=== PATIENT | female | born 1975 | race Two or more races ===

== ENCOUNTER → 2020-05-31 | Outpatient (CLI) | payer OTHER | END | disposition home or self-care (01) | LOC: XYW 11:26 | PROVIDERS: ATTEND Family Medicine | DX: S43.432A Superior glenoid labrum lesion of left shoulder, initial encounter (principal); M19.012 Primary osteoarthritis, left shoulder; M75.82 Other shoulder lesions, left shoulder; M25.512 Pain in left shoulder; M77.8 Other enthesopathies, not elsewhere classified; X58.XXXA Exposure to other specified factors, initial encounter; Y93.89 Activity, other specified; Y92.89 Other specified places as the place of occurrence of the external cause; Y99.8 Other external cause status | CPT/HCPCS: 73221 ==

== ENCOUNTER → 2022-11-25 | Outpatient (CLI) | payer OTHER | END | disposition home or self-care (01) | LOC: Rad HDHVI 14:03 | PROVIDERS: ATTEND Internal Medicine Cardiovascular Disease | DX: R06.02 Shortness of breath (principal); R42 Dizziness and giddiness | CPT/HCPCS: 93306 ==

== ENCOUNTER → 2022-12-07 | Outpatient (CLI) | payer OTHER ==
[~2022-12-07] VITALS: Ht 165.1 cm; Wt 72.6 kg
== END | disposition home or self-care (01) ==
LOC: Rad HDHVI 13:56
PROVIDERS: ATTEND Internal Medicine Cardiovascular Disease
DX: I35.0 Nonrheumatic aortic (valve) stenosis (principal); R06.02 Shortness of breath; R42 Dizziness and giddiness; E78.5 Hyperlipidemia, unspecified; Z82.49 Family history of ischemic heart disease and other diseases of the circulatory system
CPT/HCPCS: 78452; 93017; 93880; 96374; A9500

== ENCOUNTER → 2023-09-14 | Outpatient (CLI) | payer OTHER ==
[2023-09-14 07:52] LABS: Basophils # (auto) 0.1 10 ^3/uL (0-0.2); Basophils % (auto) 0.8 % (0.0-2.0); Eosinophils # (auto) 0.2 10 ^3/uL (0-0.8); Eosinophils % (auto) 2.8 % (0.0-7.0); Hematocrit 38.9 % (36.0-46.0); Hemoglobin 12.5 g/dL (12.2-16.2); Lymphocytes # (auto) 1.5 10 ^3/uL (0.4-5.4); Lymphocytes % (auto) 22.2 % (10.0-50.0); Mean Corpuscular Hemoglobin 27.4 pg (28.0-32.0); Mean Corpuscular Hgb Conc. 32.3 g/dL (32.0-36.0); Monocytes # (auto) 0.6 10 ^3/uL (0-1.3); Monocytes % (auto) 9.9 % (0.0-12.0); Neutrophils # (auto) 4.2 10 ^3/uL (1.6-8.6); Neutrophils % (auto) 64.3 % (37.0-80.0); Nucleated Red Blood Cells % 0.1 %; Red Blood Cells 4.58 10^6/uL (4.0-5.20); Red Cell Distribution Width 15.7 % (11.8-14.3); White Blood Cell 6.6 10^3/uL (4.4-10.8)
[2023-09-14 08:54] LABS: Alanine Aminotransferase 13 U/L (7-40); Albumin 4.2 g/dL (3.2-4.8); Alkaline Phosphatase 32 U/L (46-116); Aspartate Aminotransferase 10 U/L (13-40); BUN/Creatinine Ratio 11.9 (10.0-20.0); Bilirubin, Total 1.4 mg/dL (0.2-1.0); Blood Urea Nitrogen 10 mg/dL (9-23); Calcium 9.2 mg/dL (8.5-10.1); Carbon Dioxide 23 mmol/L (20-30); Cholesterol 220 mg/dL (< 200); Glucose 96 mg/dL (74-106); HDL Cholesterol 50 mg/dL (40-59); LDL Cholesterol 159 mg/dL (< 100); Potassium 4.1 mmol/L (3.5-5.1); Sodium 140 mmol/L (136-145); Total Protein 6.4 g/dL (5.7-8.2); Triglycerides 120 mg/dL (< 150)
[2023-09-14 08:57] LABS: Chloride 110 mmol/L (98-107)
[2023-09-14 09:03] LABS: Anion Gap 7 (5-15)
[2023-09-14 09:12] LABS: Folate (Folic Acid) 25.77 ng/mL (>5.38)
[2023-09-15 07:06] LABS: Homocyst(e)ine 8.7 umol/L (0.0-14.5)
== END | disposition home or self-care (01) ==
LOC: LAB 07:25
PROVIDERS: ATTEND Student in an Organized Health Care Education/Training Program
DX: K90.1 Tropical sprue (principal); E78.2 Mixed hyperlipidemia; Z12.11 Encounter for screening for malignant neoplasm of colon; Z15.89 Genetic susceptibility to other disease
CPT/HCPCS: 36415; 80053; 80061; 82274; 82607; 82746; 82784; 83090; 85025

== ENCOUNTER 2024-05-23 10:09 | Day surgery (SDC) | payer OTHER ==
[2024-05-17 12:07] LABS: Basophils # (auto) 0.1 10 ^3/uL (0-0.2); Eosinophils # (auto) 0.1 10 ^3/uL (0-0.8); Eosinophils % (auto) 1.4 % (0.0-7.0); Hematocrit 41.4 % (36.0-46.0); Hemoglobin 13.6 g/dL (12.2-16.2); Lymphocytes # (auto) 1.4 10 ^3/uL (0.4-5.4); Lymphocytes % (auto) 18.5 % (10.0-50.0); Mean Corpuscular Hemoglobin 27.8 pg (28.0-32.0); Mean Corpuscular Hgb Conc. 32.8 g/dL (32.0-36.0); Mean Corpuscular Volume 84.6 fL (80.0-100.0); Monocytes # (auto) 0.6 10 ^3/uL (0-1.3); Monocytes % (auto) 8.4 % (0.0-12.0); Neutrophils # (auto) 5.4 10 ^3/uL (1.6-8.6); Neutrophils % (auto) 70.7 % (37.0-80.0); Nucleated Red Blood Cells % 0.1 %; Platelet Count (auto) 227 10^3/uL (140-450); Red Blood Cells 4.89 10^6/uL (4.0-5.20); Red Cell Distribution Width 15.1 % (11.8-14.3); White Blood Cell 7.6 10^3/uL (4.4-10.8)
[2024-05-17 12:23] LABS: Partial Thromboplastin Time 26.7 SEC (24.5-34.5); Prothrombin Time 10.6 sec (9.3-11.8)
[2024-05-17 12:40] LABS: Alanine Aminotransferase 11 U/L (7-40); Albumin 4.5 g/dL (3.2-4.8); Alkaline Phosphatase 46 U/L (46-116); Anion Gap 6 (5-15); Aspartate Aminotransferase 9 U/L (13-40); BUN/Creatinine Ratio 14.3 (10.0-20.0); Bilirubin, Total 0.8 mg/dL (0.2-1.0); Blood Urea Nitrogen 13 mg/dL (9-23); Calcium 9.6 mg/dL (8.7-10.4); Carbon Dioxide 25 mmol/L (20-31); Chloride 108 mmol/L (98-107); Glucose 100 mg/dL (74-106); Potassium 4.2 mmol/L (3.5-5.1); Sodium 139 mmol/L (136-145); Total Protein 6.9 g/dL (5.7-8.2)
[~2024-05-23] VITALS: Ht 165.1 cm; Wt 72.6 kg
[2024-05-23] MEDS ORDERED: SODIUM CHLORIDE LOCK 10 ML ONE (10:32)
[2024-05-23 11:27] VITALS: PULSE 66; RESP 17; O2SAT 98
[2024-05-23] MEDS: LIDOCAINE VISCOUS 2% 15ML UD ONE (11:29)
[2024-05-23] MEDS: MIDAZOLAM HCL 5 MG/ML-1ML VIAL ONE (11:30)
[2024-05-23] MEDS: fentaNYL CITRATE 100 MCG/2 ML VL ONE (11:30)
[2024-05-23] MEDS: diphenhdrAMINE HCL 50 MG/1 ML VL ONE (11:30)
--- NOTE | 2024-05-23 11:47 | DVHOP2 ---
Operative Report DATE OF OPERATION: 05/23/24 PROCEDURE: Upper Endoscopy with biopsy. PREOPERATIVE INDICATION: The patient is a 48 -year-old female undergoing endoscopy for chronic GERD dyspepsia and history of gluten sensitivity POSTOPERATIVE DIAGNOSES: 1. She had a slightly irregular squamocolumnar junction with 5 mm extension of columnar epithelium into the distal esophagus with minimal grade a erosive esophagitis from which biopsies were obtained 2. Minimal gastroduodenitis 3. She had three or four diminutive benign-appearing gastric polyp seen in the body of the stomach that were removed by cold biopsy forceps PROCEDURE PERFORMED BY: Yanely Hernandez GI NURSE: Jaxon SCOPE: Olympus videoendoscope. ASA CLASS: 2. PREOPERATIVE MEDICATIONS: Versed 4 mg, Fentanyl 100 mcg, Benadryl 50 mg I administered moderate sedation throughout this _13_ minutes procedure. An independent trained observer pushed medications at my direction, and monitored the patient's level of consciousness and physiological status throughout. PROCEDURE IN DETAIL: After obtaining an informed consent, the patient was placed on left lateral decubitus position. The patient was then sedated with the above medications. A bite block was placed between her teeth. The endoscope was then passed through the oropharynx, into the esophagus, and through the stomach and pylorus up to the second and third part of the duodenum. The endoscope was then withdrawn. The 2nd and 3rd part of the duodenum and the duodenal bulb appeared to be grossly normal. There was minimal duodenitis and duodenal biopsies were obtained to rule out any villous atrophy The pre-pyloric area antrum and body showed minimal gastritis and gastric biopsies were obtained. On retroflexion and straight on view the patient had four tiny diminutive benign-appearing gastric polyps that were removed by cold biopsy forceps The endoscope was then withdrawn into the distal esophagus where she had a 0.5 cm extension of columnar epithelium into the distal esophagus with minimal grade a erosive esophagitis GE junction biopsies were obtained. The remaining distal and proximal esophagus and oropharynx were unremarkable. The patient tolerated the procedure well without difficulty. COMPLICATIONS : None SPECIMENS: Duodenal biopsies Gastric biopsies Gastric polyps GE junction biopsies DISPOSITION: Stable D/C to home PLAN: 1. Await for biopsy result 2. Will place pt on Protonix 20 mg p.o. daily 3. Lifestyle and dietary modifications for GERD 4. Resume GI soft diet advance as tolerated 5. Outpatient follow up with me in 4-6 weeks to review results and discuss further management YANELY HERNANDEZ MD May 23, 2024 11:47
[2024-05-23 11:52] VITALS: PULSE 63; RESP 12; TEMP 98.2
[2024-05-23 12:25] VITALS: BP 109/58; PULSE 63; RESP 14; O2SAT 100
== END 2024-05-23 12:40 | disposition home or self-care (01) ==
LOC: GI 10:09
PROVIDERS: ATTEND Internal Medicine Gastroenterology
DX: K21.00 Gastro-esophageal reflux disease with esophagitis, without bleeding (principal); K29.50 Unspecified chronic gastritis without bleeding; K22.10 Ulcer of esophagus without bleeding; K31.7 Polyp of stomach and duodenum; K29.80 Duodenitis without bleeding; Z98.890 Other specified postprocedural states
CPT/HCPCS: 36415; 43239; 80053; 84702; 85025; 85610; 85730; 88305; 88312; 88342; J1200; J2250; J3010; J7030; 99152

== ENCOUNTER 2024-06-23 09:59 | Day surgery (SDC) | payer OTHER ==
[2024-06-19 15:12] LABS: Basophils # (auto) 0.1 10 ^3/uL (0-0.2); Basophils % (auto) 0.7 % (0.0-2.0); Eosinophils # (auto) 0.1 10 ^3/uL (0-0.8); Eosinophils % (auto) 1.2 % (0.0-7.0); Hematocrit 41.5 % (36.0-46.0); Hemoglobin 13.7 g/dL (12.2-16.2); Lymphocytes # (auto) 1.5 10 ^3/uL (0.4-5.4); Lymphocytes % (auto) 16.7 % (10.0-50.0); Mean Corpuscular Hemoglobin 27.7 pg (28.0-32.0); Mean Corpuscular Hgb Conc. 33.1 g/dL (32.0-36.0); Mean Corpuscular Volume 83.8 fL (80.0-100.0); Monocytes # (auto) 0.6 10 ^3/uL (0-1.3); Neutrophils # (auto) 6.9 10 ^3/uL (1.6-8.6); Neutrophils % (auto) 74.4 % (37.0-80.0); Platelet Count (auto) 222 10^3/uL (140-450); Red Blood Cells 4.95 10^6/uL (4.0-5.20); Red Cell Distribution Width 15.1 % (11.8-14.3); White Blood Cell 9.3 10^3/uL (4.4-10.8)
[2024-06-19 15:21] LABS: Alanine Aminotransferase 15 U/L (7-40); Albumin 4.6 g/dL (3.2-4.8); Anion Gap 10 (5-15); BUN/Creatinine Ratio 18.5 (10.0-20.0); Bilirubin, Total 0.9 mg/dL (0.2-1.0); Blood Urea Nitrogen 12 mg/dL (9-23); Calcium 9.9 mg/dL (8.7-10.4); Carbon Dioxide 25 mmol/L (20-31); Chloride 104 mmol/L (98-107); INR 1.02 (0.9-1.15); Partial Thromboplastin Time 26.7 SEC (24.5-34.5); Potassium 3.8 mmol/L (3.5-5.1); Prothrombin Time 10.8 sec (9.3-11.8); Sodium 139 mmol/L (136-145); Total Protein 6.6 g/dL (5.7-8.2)
[2024-06-19 15:26] LABS: Glucose 96 mg/dL (74-106)
[2024-06-19 15:29] LABS: Alkaline Phosphatase 37 U/L (46-116); Aspartate Aminotransferase 8 U/L (13-40)
[~2024-06-23] VITALS: Ht 165.1 cm; Wt 72.6 kg
[~2024-06-23 09:59] MED LIST: SODIUM CHLORIDE LOCK 10 ML ONE
[2024-06-23] MEDS: MIDAZOLAM HCL 5 MG/ML-1ML VIAL ONE (13:41)
[2024-06-23] MEDS: diphenhdrAMINE HCL 50 MG/1 ML VL ONE (13:41)
[2024-06-23] MEDS: fentaNYL CITRATE 100 MCG/2 ML VL ONE (13:41)
[2024-06-23 14:00] VITALS: PULSE 58; RESP 13; TEMP 97.6; O2SAT 100
[2024-06-23 14:20] VITALS: PULSE 61; RESP 13; O2SAT 100
[2024-06-23 14:45] VITALS: BP 104/52; PULSE 55; RESP 15; O2SAT 99
--- NOTE | 2024-06-25 08:36 | DVHOP2 ---
Operative Report DATE OF OPERATION: 06/23/24 PROCEDURE: Diagnostic Colonoscopy. PREOPERATIVE INDICATION: The patient is a 48 -year-old female undergoing colonoscopy for colon cancer screening POSTOPERATIVE DIAGNOSES: 1. Trace internal hemorrhoids otherwise essentially completely normal colonoscopy examination up to the cecum and terminal ileum PROCEDURE PERFORMED BY: Yanely Hernandez M.D. SCOPE: Olympus videocolonoscope. ASA CLASS: 2. PREOPERATIVE MEDICATIONS: Versed 4 mg, Fentanyl 100 mcg, Benadryl 50 mg PROCEDURE IN DETAIL: After obtaining an informed consent, the patient was placed on left lateral decubitus position. She was then sedated with the above medications. A rectal examination was performed that was normal. The colonoscope was then passed through the anus into the rectosigmoid and through the descending, transverse, and ascending colon up to the cecum with visualization of the appendiceal orifice, base of the cecum and the ileocecal valve. The colonoscope was then withdrawn. The distal 5-10 cm of the terminal ileum were normal. There was no masses or colitis seen. There was no diverticular disease or polyps. On retroflexion and straight on view she had trace internal hemorrhoids. The patient tolerated the procedure well without difficulty. WITHDRAWAL TIME: 6 minute QUALITY OF THE PREP: [place] Bowel Prep score: 9. COMPLICATIONS : None SPECIMENS: None DISPOSITION: Table D/C to home PLAN: 1. Repeat colonoscopy in 10 years 2. Resume GI soft diet advance as tolerated ; increase fluid and fiber intake 3. Outpatient follow up with me in 4-6 weeks to review results and discuss further management YANELY HERNANDEZ MD Jun 25, 2024 08:36
== END 2024-06-23 15:00 | disposition home or self-care (01) ==
LOC: GI 09:59
PROVIDERS: ATTEND Internal Medicine Gastroenterology
DX: R19.4 Change in bowel habit (principal); K90.0 Celiac disease; K64.8 Other hemorrhoids; Z79.899 Other long term (current) drug therapy; Z98.890 Other specified postprocedural states
CPT/HCPCS: 36415; 45378; 80053; 84702; 85025; 85610; 85730; J1200; J2250; J3010; J7030; 99152